=== PATIENT | female | born 1940 ===

== ENCOUNTER 2017-01-19 11:44 | Day surgery (SDC) | payer MEDICARE ==
[2017-01-19 12:30] VITALS: BMI 22.8
[2017-01-19] MEDS ORDERED: Propofol 10 mg/ml Inj (20 ML) ONE ×2 (14:47→15:03)
[2017-01-19] MEDS ORDERED: Midazolam 2 MG/2 ML VIAL ONE (14:47)
--- NOTE | 2017-01-19 14:50 | CP.SDSHP ---
Same Day Surgery H & P - History Proposed Procedure: Colonoscopy Pre-Op Diagnosis: Screening - Previous Medical/Surgical History Endocrine/Metabolic: Thyroid Disease Previous Surgical History: Hip replacement. Abdominal mesh - Allergies Allergies: Allergies No Known Allergies Allergy (Verified 08/05/15 11:22) - Current Medications Current Medications: reviewed - Physical Exam General Appearance: wdwn nad Vital Signs: Vital Signs 01/19/17 12:16 Temperature 98.6 F Pulse Rate 73 Respiratory 18 Rate Blood Pressure 119/67 O2 Sat by Pulse 98 Oximetry Mental Status: Alert & Oriented x3 Heart: WNL Lungs: WNL GI: WNL - {Optional Preform as Required} Abdomen: WNL - Impression Impression: Screening exam Pt. Evaluated Today:Candidate for Anesthesia & Procedure: Yes - Date & Time Date: 01/19/17 Time: 14:50 Short Stay Discharge - Short Stay Discharge Admitting Diagnosis/Reason for Visit: ENCOUNTER FOR SCREENING FOR MALIGNANT NEOPLASM OF Disposition: HOME/ ROUTINE
[2017-01-19 15:36] VITALS: TEMP 98.2
[2017-01-19 16:17] VITALS: PULSE 70; RESP 17
[2017-01-19 16:37] VITALS: BP 116/64; O2SAT 100
== END 2017-01-19 16:30 | disposition home or self-care (01) ==
LOC: C.ENDO 11:44
PROVIDERS: ATTEND Internal Medicine Gastroenterology
DX: D12.0 Benign neoplasm of cecum (principal); D12.3 Benign neoplasm of transverse colon; K64.8 Other hemorrhoids
CPT/HCPCS: 45385; 88305; J2250; J2704